=== PATIENT | male | born 1985 | race Two or more races ===

== ENCOUNTER 2023-07-16 01:08 | Emergency (ER) | payer OTHER ==
[~2023-07-16] VITALS: Ht 172.7 cm; Wt 80.7 kg
[2023-07-16] MEDS ORDERED: CEFTRIAXONE SODIUM 1,000 MG VIAL IM STA (03:49)
== END 2023-07-16 04:04 | disposition home or self-care (01) ==
LOC: ER 01:08
DX: J06.9 Acute upper respiratory infection, unspecified (principal)

== ENCOUNTER 2024-03-24 11:33 | Emergency (ER) | payer OTHER ==
[~2024-03-24] VITALS: Ht 172.7 cm; Wt 64.4 kg
== END 2024-03-24 13:13 | disposition home or self-care (01) ==
LOC: ER 11:33
DX: T43.615A Adverse effect of caffeine, initial encounter (principal); R00.2 Palpitations

== ENCOUNTER 2024-03-29 11:50 | Emergency (ER) | payer OTHER ==
[~2024-03-29] VITALS: Ht 172.7 cm; Wt 64.4 kg
[2024-03-29 12:22] VITALS: BP 128/77; O2SAT 97
[2024-03-29 13:46] LABS: HEMATOCRIT 45.7 % (39.0-48.0); HEMOGLOBIN 15.6 g/dL (13-16.00); MEAN CELL VOLUME 96.5 fL (80.0-100.00); MEAN CORPUSCULAR HGB CONC 34.2 g/dl (32.0-36.0); PLATELET COUNT 203 K/uL (150-450); RED BLOOD COUNT 4.74 M/uL (4.00-6.00); RED CELL DISTRIBUTION WIDTH 12.9 % (11.5-14.5)
[2024-03-29 14:09] LABS: PH,URINE 6.5 (5.0-8.0); URINE APPEARANCE Clear; URINE BILIRRUBIN Negative (NEGATIVE); URINE BLOOD Negative; URINE COLOR Dark Yellow; URINE GLUCOSE Negative (NEGATIVE); URINE KETONE Negative (NEGATIVE); URINE LEUKOCYTE Negative; URINE NITRATE Negative; URINE PROTEIN Negative (NEGATIVE); URINE UROBILINOGEN 0.2 E.U./dl
[2024-03-29 14:12] LABS: URINE BACTERIA 33.9 uL (0.0-1933); URINE WBC 6.4 uL (0.0-23.2)
[2024-03-29 14:48] LABS: URINE EPITHELIAL CELLS 0.3 uL (0.0-38.8); URINE RBC 1.8 uL (0.0-20.8)
[2024-03-29 15:24] LABS: ALBUMIN 4.2 gm/dL (3.4-5.0); BILIRUBIN TOTAL 0.45 mg/dL (0.3-1.2); CALCIUM 9.9 mg/dL (8.5-10.1); GFR 83.63; GLOBULINA 4.2 G/DL (2.4-3.5); POTASSIUM 4.25 mEq/L (3.5-5.1); TOTAL PROTEIN 8.4 gm/dL (6.4-8.2)
== END 2024-03-29 16:05 | disposition home or self-care (01) ==
LOC: ER 11:52
PROVIDERS: General Practice
DX: R00.0 Tachycardia, unspecified (principal); Z20.822 Contact with and (suspected) exposure to COVID-19

== ENCOUNTER 2024-07-06 06:16 | Emergency (ER) | payer OTHER ==
[~2024-07-06] VITALS: Ht 172.7 cm; Wt 63.0 kg
[2024-07-06] MEDS ORDERED: MAG HYDROX/ALUMINUM HYD/SIMETH 30 ML BLIST.PACK PO STA (07:51)
[2024-07-06] MEDS ORDERED: FAMOTIDINE/PF 20 MG/2 ML VIAL IV PUSH STA (07:55)
[2024-07-06] MEDS ORDERED: FAMOTIDINE/PF 20 MG/2 ML VIAL ONE (08:18)
[2024-07-06] MEDS ORDERED: MAG HYDROX/ALUMINUM HYD/SIMETH 30 ML BLIST.PACK PO ONE (08:18)
[2024-07-06 08:51] LABS: URINE APPEARANCE Clear; URINE BILIRRUBIN Negative (NEGATIVE); URINE BLOOD Negative; URINE COLOR Yellow; URINE GLUCOSE Negative (NEGATIVE); URINE KETONE Trace (NEGATIVE); URINE LEUKOCYTE Negative; URINE NITRATE Negative; URINE PROTEIN Negative (NEGATIVE); URINE UROBILINOGEN 0.2 E.U./dl
[2024-07-06 08:53] LABS: URINE BACTERIA 13.4 uL (0.0-1933); URINE WBC 4.5 uL (0.0-23.2)
[2024-07-06 08:54] LABS: HEMATOCRIT 43.7 % (39.0-48.0); MEAN CELL VOLUME 95.3 fL (80.0-100.00); MEAN CORPUSCULAR HEMOGLOBIN 32.8 pg (27.00-32.0); MEAN CORPUSCULAR HGB CONC 34.5 g/dl (32.0-36.0); PLATELET COUNT 174 K/uL (150-450); RED BLOOD COUNT 4.58 M/uL (4.00-6.00); RED CELL DISTRIBUTION WIDTH 12.2 % (11.5-14.5)
[2024-07-06 09:16] LABS: URINE EPITHELIAL CELLS 0.6 uL (0.0-38.8); URINE RBC 0.1 uL (0.0-20.8)
[2024-07-06 09:59] LABS: ALBUMIN 3.9 gm/dL (3.4-5.0); BILIRUBIN TOTAL 0.69 mg/dL (0.3-1.2); CALCIUM 9.3 mg/dL (8.5-10.1); CREATININE SERUM 0.94 mg/dL (0.70-1.30); GFR 89.81; GLOBULINA 3.5 G/DL (2.4-3.5); POTASSIUM 4.14 mEq/L (3.5-5.1); TOTAL PROTEIN 7.4 gm/dL (6.4-8.2)
[2024-07-06 14:04] VITALS: BP 131/70; O2SAT 99
[2024-07-07] MEDS ORDERED: CARAFATE1 GM PO (15:33)
== END 2024-07-06 14:05 | disposition home or self-care (01) ==
LOC: ER 06:16
PROVIDERS: General Practice
DX: K21.9 Gastro-esophageal reflux disease without esophagitis (principal); R06.02 Shortness of breath; Z20.822 Contact with and (suspected) exposure to COVID-19

== ENCOUNTER 2024-07-07 14:56 | Emergency (ER) | payer OTHER ==
[~2024-07-07] VITALS: Ht 172.7 cm; Wt 63.0 kg
[2024-07-07] MEDS ORDERED: CARAFATE1 GM PO (15:33)
[2024-07-07] MEDS ORDERED: hydrOXYzine PAMOATE 25 MG CAPSULE PO STA (16:56)
[2024-07-07] MEDS ORDERED: hydrOXYzine PAMOATE 25 MG CAPSULE PO ONE (17:01)
[2024-07-07 17:28] LABS: HEMATOCRIT 43.7 % (39.0-48.0); HEMOGLOBIN 15.3 g/dL (13-16.00); MEAN CORPUSCULAR HEMOGLOBIN 33.3 pg (27.00-32.0); MEAN CORPUSCULAR HGB CONC 35.1 g/dl (32.0-36.0); PLATELET COUNT 183 K/uL (150-450); RED CELL DISTRIBUTION WIDTH 12.2 % (11.5-14.5)
[2024-07-07 17:52] LABS: ALBUMIN 4.4 gm/dL (3.4-5.0); BILIRUBIN TOTAL 0.83 mg/dL (0.3-1.2); CALCIUM 9.6 mg/dL (8.5-10.1); GFR 83.63; POTASSIUM 4.05 mEq/L (3.5-5.1); TOTAL PROTEIN 8.4 gm/dL (6.4-8.2)
== END 2024-07-07 19:30 | disposition home or self-care (01) ==
LOC: ER 14:59
PROVIDERS: General Practice
DX: R00.2 Palpitations (principal)

== ENCOUNTER 2024-07-23 11:38 | Emergency (ER) | payer OTHER ==
[~2024-07-23] VITALS: Ht 172.7 cm; Wt 63.5 kg
[~2024-07-23 11:38] MED LIST: CARAFATE1 GM PO
[2024-07-23 15:32] LABS: HEMATOCRIT 44.2 % (39.0-48.0); HEMOGLOBIN 14.7 g/dL (13-16.00); MEAN CELL VOLUME 97.2 fL (80.0-100.00); MEAN CORPUSCULAR HEMOGLOBIN 32.3 pg (27.00-32.0); MEAN CORPUSCULAR HGB CONC 33.2 g/dl (32.0-36.0); PLATELET COUNT 183 K/uL (150-450); RED BLOOD COUNT 4.55 M/uL (4.00-6.00); RED CELL DISTRIBUTION WIDTH 12.3 % (11.5-14.5)
[2024-07-23 16:10] LABS: ALBUMIN 4.2 gm/dL (3.4-5.0); BILIRUBIN TOTAL 0.47 mg/dL (0.3-1.2); CALCIUM 9.3 mg/dL (8.5-10.1); CREATININE SERUM 0.95 mg/dL (0.70-1.30); GFR 88.72; GLOBULINA 4.1 G/DL (2.4-3.5); POTASSIUM 3.31 mEq/L (3.5-5.1); TOTAL PROTEIN 8.3 gm/dL (6.4-8.2)
[2024-07-23 16:15] LABS: URINE APPEARANCE Clear; URINE BILIRRUBIN Negative (NEGATIVE); URINE BLOOD Negative; URINE COLOR Yellow; URINE GLUCOSE Negative (NEGATIVE); URINE KETONE Negative (NEGATIVE); URINE LEUKOCYTE Negative; URINE NITRATE Negative; URINE PROTEIN Negative (NEGATIVE); URINE UROBILINOGEN 0.2 E.U./dl
[2024-07-23 16:19] LABS: URINE WBC 8.5 uL (0.0-23.2)
[2024-07-23 16:23] LABS: URINE BACTERIA 3.6 uL (0.0-1933); URINE EPITHELIAL CELLS 0.7 uL (0.0-38.8); URINE RBC 0.8 uL (0.0-20.8)
== END 2024-07-23 17:52 | disposition home or self-care (01) ==
LOC: ER 11:41
DX: F41.9 Anxiety disorder, unspecified (principal)